=== PATIENT | female | born 1955 | race Caucasian/White ===

== ENCOUNTER → 2018-01-29 | Outpatient (CLI) | payer OTHER | LOC: FIMAGING 08:21 | PROVIDERS: ATTEND Physician Assistant | DX: M25.562 Pain in left knee (principal); M23.222 Derangement of posterior horn of medial meniscus due to old tear or injury, left knee; M25.462 Effusion, left knee; Z96.698 Presence of other orthopedic joint implants ==

== ENCOUNTER → 2018-11-23 | Outpatient (CLI) | payer OTHER | LOC: CIMAGING 10:05 | PROVIDERS: ATTEND Physician Assistant Medical | DX: Z12.31 Encounter for screening mammogram for malignant neoplasm of breast (principal) ==